=== PATIENT | male | born 1935 | race Caucasian/White ===

== ENCOUNTER → 2018-11-20 | Outpatient (CLI) | payer OTHER | LOC: FIMAGING 09:19 | PROVIDERS: ATTEND Internal Medicine Cardiovascular Disease | DX: I27.20 Pulmonary hypertension, unspecified (principal); R94.31 Abnormal electrocardiogram [ECG] [EKG] ==

== ENCOUNTER → 2018-11-26 | Outpatient (CLI) | payer OTHER | LOC: BHFA 08:30 | PROVIDERS: ATTEND Internal Medicine Cardiovascular Disease | DX: R94.31 Abnormal electrocardiogram [ECG] [EKG] (principal); R01.1 Cardiac murmur, unspecified | CPT/HCPCS: 78452; 93017; 93306; A9500; J2785 ==

== ENCOUNTER 2018-12-05 07:36 | Inpatient (IN) | payer OTHER ==
[2018-12-05] MEDS ORDERED: diphenhydrAMINE 25 MG CAP PO ONE ×2 (07:42→08:22)
[2018-12-05] MEDS ORDERED: NS 1,000 ML IV ONE (07:42)
[2018-12-05] MEDS ORDERED: ASPIRIN EC 325 MG TAB PO ONE ×2 (07:42→08:23)
[2018-12-05] MEDS ORDERED: DIAZEPAM 5 MG TAB PO ONE (07:42)
[2018-12-05] MEDS ORDERED: FAMOTIDINE 20 MG TAB PO ONE (07:42)
[2018-12-05] MEDS ORDERED: FAMOTIDINE 20 MG TAB ONE (08:22)
[2018-12-05 08:26] LABS: PLATELET COUNT 176 10^3/uL (150-400)
[2018-12-05 08:41] LABS: INR 0.97 (0.83-1.16); PROTIME(PATIENT) 13.1 SEC (12.0-15.0)
[2018-12-05] MEDS ORDERED: LIDOCAINE 1% 300 MG/30 ML SDV ONE (08:50)
[2018-12-05] MEDS ORDERED: MIDAZOLAM 2 MG/2 ML VIAL ONE (08:50)
[2018-12-05] MEDS ORDERED: fentaNYL 100 MCG/2 ML INJ ONE (08:50)
[2018-12-05] MEDS ORDERED: VERAPAMIL 5 MG/2 ML VIAL ONE (08:51)
[2018-12-05] MEDS ORDERED: HEPARIN 10,000 UNIT/10 ML MDV (1,000 UNIT/ML) ONE (08:51)
[2018-12-05] MEDS ORDERED: IOPAMIDOL (ISOVUE-300) 100 ML BTL ONE ×2 (08:52→10:07)
--- NOTE | 2018-12-05 09:06 | PDHPUP ---
History & Physical Update H&P update statement: This history and physical update is based on an assessment of the patient which was completed after admission or registration (within 24 hours), but prior to the surgery/procedure. H&P update: H&P reviewed & patient examined (abnormal nuclear stress test intermediate risk, CCS Class III symptoms ), no change in patient's condition since H&P completed
--- NOTE | 2018-12-05 09:06 | PDPROPOC ---
Sedation Plan of Care Sedation Plan of Care: vital signs stable, mental status noted, patient educated of risks, benefits, alternatives, patient can tolerate sedation ASA Classification: ASA 3 Planned drugs: fentanyl, midazolam Mallampati Score: Class 4 Mallampati Reference Image: Patient passed 3-3-2 rule?: No
--- NOTE | 2018-12-05 09:21 | PDDXCAT ---
Diagnostic Cath Note - . Date: 12/05/18 Framer: Kyra Indication: other (intermediate risk stress test) - Procedure Access: right wrist Procedure: left heart catheterization, coronary angiography, left ventriculogram - Materials Left Heart Cath size: 5F Left Heart Cath materials: JL4.0, JR4.0, pigtail - Findings-Left Heart Catheterization LM: The left main is 8mm in size and bifurcates into an LAD and Circumflex system. It is free of obstruction via angiography and IVUS. LAD: The left anterior descending is 4mm in size. Angiographically there is a 50 -60% lesion in the proximal portion of the LAD. IVUS shows moderate herteogenous plaque involving the mid LAD. There was 68% obstruction across two tandem lesions measured with IVUS. LCX: The circumflex is 4mm in size. There are luminal irregularities consistent with atherosclerosis. Maximal luminal stenosis is 15%. RCA: The right coronary artery is 3.5mm in size and dominant. The vessel gives rise to a PDA and PLV branch. There are luminal irregularities consistent with atherosclerosis. Maximal luminal stenosis is 10%. There is KATHRIN III flow throughout. EDP: 17mmHg LVEF: 65% Wall motion: On the LV gram there is normal LV systolic function. The EF is 65% . There are no resting segmental wall motion abnormalities. 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 There is no gradient on pullback across the aortic valve. There is no evidence of dissection. The proximal portion of the aorta is aneurysmal and is known to be 4.4 cm by echocardiogram. - Findings-Right Heart Catheterization AO: 11959/83 Complications: NONE Estimated blood loss: <50ml Closure method: TR Band Assessment: The patient has [place] vessel coronary disease. The patient was found to have a 68% and a second 67% obstruction in two tandem lesions in the proximal LAD via IVUS imaging. See intervention. Plan: Aspirin 81mg along with Plavix 75mg daily should be continued for at least 1 year following drug eluting stent implantation. No elective surgery for the first 3 months. Decisions to stop dual antiplatelet therapy before 1 year should involve our office [facility] . Intervention: A 6 [place] JR4 guiding catheter was used for guide catheter support. A 0.014" 185 cm Intuition Wire was advanced across the lesion in question under direct fluoroscopic and angiographic guidance. A 3.5 x 12mm synergy stent was advanced under direct fluoroscopic and angiographic guidance. The stent was deployed at a maximum pressure of 16 NOEMÍ with 2 serial inflations. There were excellent angiographic results with 5% residual stenosis s/p stent implantation.
--- NOTE | 2018-12-05 10:00 | CPEKG ---
Test Reason : OPEN Blood Pressure : / mmHG Vent. 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
[2018-12-05] MEDS ORDERED: CLOPIDOGREL BISULFATE 75 MG TAB ONE (10:32)
[2018-12-05] MEDS ORDERED: NITROGLYCERIN 0.4 MG BTL SL PRN (10:43)
[2018-12-05] MEDS ORDERED: ONDANSETRON 4 MG/2 ML VIAL IVP PRN (10:43)
[2018-12-05] MEDS ORDERED: OXYCODONE/APAP 5/325 TAB PO PRN (10:43)
[2018-12-05] MEDS ORDERED: ATROPINE SULFATE 1 MG/10 ML SYR IVP PRN (10:43)
[2018-12-05] MEDS ORDERED: CLOPIDOGREL BISULFATE 75 MG TAB PO ONE (10:43)
[2018-12-05] MEDS ORDERED: LORazepam 2 MG/ML INJ IVP PRN (10:43)
[2018-12-05] MEDS ORDERED: HYDROCODONE/APAP 5/325 TAB PO PRN (10:43)
[2018-12-05] MEDS ORDERED: TEMAZEPAM 15 MG CAP PO PRN (10:43)
[2018-12-05] MEDS ORDERED: NS 1,000 ML IV SCH (10:45)
--- NOTE | 2018-12-05 15:20 | PDMN ---
Medical Necessity Medical necessity: Pt meets IP criteria as of 12/05/2018 per MD and MCG [id number] ( Angioplasty, PCI); est los > 2 mn for care and management s/p revision PCI d/t abnormal nuclear stress stent of LAD as well as CAD and dyspnea
[2018-12-05] MEDS ORDERED: ATORVASTATIN CALCIUM 10 MG TAB PO SCH (21:00)
[2018-12-06 04:53] LABS: PLATELET COUNT 167 10^3/uL (150-400)
[2018-12-06 07:09] VITALS: BP 111/70
[2018-12-06] MEDS ORDERED: CLOPIDOGREL BISULFATE 75 MG TAB PO SCH (09:00)
[2018-12-06] MEDS ORDERED: ASPIRIN EC 325 MG TAB PO SCH (09:00)
--- NOTE | 2018-12-06 09:18 | CPEKG ---
Test Reason : OPEN Blood Pressure : / mmHG Vent. Rate : 055 BPM Atrial Rate : 056 BPM P-R Int : 160 ms QRS Dur : 114 ms QT Int : 470 ms P-R-T Axes : 051 268 002 degrees QTc Int : 450 ms Sinus rhythm Incomplete RBBB and LAFB Anteroseptal infarct, old Confirmed by Madan Mckeon ([id number]) on 12/06/2018 9:18:02 AM Referred By: Leobardo Rae Confirmed By:Madan Mckeon
--- NOTE | 2018-12-06 09:24 | CPEKG ---
Test Reason : OPEN Blood Pressure : / mmHG Vent. Rate : 068 BPM Atrial Rate : 068 BPM P-R Int : 152 ms QRS Dur : 113 ms QT Int : 424 ms P-R-T Axes : 052 269 037 degrees QTc Int : 451 ms Sinus rhythm Left anterior fascicular block Anteroseptal infarct, old Confirmed by Madan Mckeon ([id number]) on 12/06/2018 9:23:52 AM Referred By: Leobardo Rae Confirmed By:Madan Mckeon
--- NOTE | 2018-12-06 09:29 | ASDISCHSUM ---
Discharge Information Plan Status:Home with No Needs Medically Cleared to Leave:12/05/2018 Discharge Date:12/05/2018 CM D/C Disposition:Home, Routine, Self-Care ADT D/C Disposition:Home, Routine, Self-Care Projected Discharge Date:12/05/2018 Transportation at D/C: Discharge Delay Reason: Follow-Up Date:12/05/2018 Discharge Slot: Final Diagnosis: Placement Information Patient Contact Information Contact Name:ASTRID Relationship:Alonzo Address: Work Phone: City: [facility] Phone: State/Zip Code: Email: Financial Information Financial Class:Medicare Primary Plan Desc:MEDICARE INPATIENT Primary Plan Number:[id number] Secondary Plan Desc:IVONE PPO POS HMO SIG ADM Secondary Plan Number:[id number] Assessment Information LACE LACE Length of stay for Answers: Less than 1 day current admission Acuity / Level of Answers: Yes Care: Did the patient have an inpatient admission? Comorbidities - select Answers: Coronary Artery Disease all that apply Opioid dependence / Chronic pain Other Notes: HTN # of Emergency department Answers: 0 visits in the last 6 months Score: 10 Date Signed: 12/06/2018 09:28 AM Electronically Signed By:Martha Helton RN Intervention Information
--- NOTE | 2018-12-06 12:01 | GDS ---
[f rep st] DISCHARGE SUMMARY DISCHARGE DIAGNOSES: 1. Coronary artery disease, status post stenting to the proximal left anterior descending artery with a 3.5 x 12 mm Synergy drug-eluting stent. 2. Hyperlipidemia. 3. Ascending aortic aneurysm measuring 4.4 cm. HOSPITAL COURSE: For detailed H and P, please see prior dictation. Briefly, the patient is an 83-year-old male who was found to have an abnormal nuclear stress test with inferior defect. There was concern for balanced ischemia, and therefore, it was recommended he proceed with a cardiac catheterization. This was performed by Dr. Leobardo Rae on December 05, 2018. The left main was free of disease. The left anterior descending artery had a % lesion in the proximal portion. IVUS showed moderate heterogeneous plaque involving the mid-LAD at 68%. Ultimately, this was stented with a 3.5 x 12 mm Synergy drug- eluting stent. The left circumflex artery had minimal disease with maximal stenosis of 15%. The right coronary artery had luminal irregularities with a maximal stenosis of 10%. His left ventricular ejection fraction was measured at 65%. The following day the patient denied any chest discomfort. He was monitored on telemetry and remained in normal sinus rhythm. His EKG did not show any changes to suggest ischemia. His right wrist where access was obtained for the angiogram was clean, intact without any evidence of infection. He denied any discomfort over his wrist site. LABORATORY: Triglycerides 55, total cholesterol 132, LDL 64, HDL 57. PHYSICAL EXAMINATION: GENERAL: Patient appears in no acute distress. VITALS: Blood pressure 111/70. Heart rate 70. Oxygen saturation of 90% on 2 L. afebrile. LUNGS: Diffuse wheeze without any rhonchi auscultated. CARDIAC: Regular rate and rhythm without any significant murmurs, rubs, or gallops appreciated. EXTREMITIES: Right wrist where access was obtained for the angiogram is clean, intact without any evidence of infection or hematoma. DISCHARGE MEDICATIONS: Aspirin 325 mg daily, Plavix 75 mg daily, simvastatin 20 mg daily, herbal supplement daily. PLAN: The patient is currently stable and ready for discharge home. He has been given wrist precautions. He is aware that he is to remain on Aspirin and Plavix for a minimum of 1 year. He does have diffuse wheezing on exam today. I have recommended he follow up with his primary care physician. Greater than 30 minutes was spent coordinating the patient's care today. /[id number]/MODL MTDD
== END 2018-12-06 10:25 | disposition home or self-care (01) | DRG 247 ==
LOC: FCATH 07:36 → F2W 13:59 → OBSVTOIN 14:00
PROVIDERS: ADMIT Internal Medicine Cardiovascular Disease; ATTEND Internal Medicine Cardiovascular Disease
DX: I25.10 Atherosclerotic heart disease of native coronary artery without angina pectoris (principal); I27.20 Pulmonary hypertension, unspecified; E78.5 Hyperlipidemia, unspecified; I71.4 Abdominal aortic aneurysm, without rupture
CPT/HCPCS: C1753; C1769; C1874; C1887; C9600; J1644; J2250; J3010; Q9967